=== PATIENT | female | born 2000 | race Caucasian/White ===

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

== ENCOUNTER 2024-03-09 11:46 | Emergency (ER) | payer BC, MEDICAID ==
[~2024-03-09] VITALS: Ht 165.1 cm; Wt 75.0 kg
[2024-03-09 12:57] VITALS: BP 112/74; PULSE 86; RESP 18; TEMP 98.5; O2SAT 100
[2024-03-09] MEDS: TETANUS-DIPTH-ACEL PERTUSSIS 0.5ML SYR Tdap IM ONE (13:40)
[2024-03-09] MEDS: IBUPROFEN 600 MG TAB PO ONE (13:40)
[2024-03-09] MEDS ORDERED: IBUP1TAB5 PO (13:55)
== END 2024-03-09 14:09 | disposition home or self-care (01) ==
LOC: ER 11:46
DX: S91.201A Unspecified open wound of right great toe with damage to nail, initial encounter (principal); S90.211A Contusion of right great toe with damage to nail, initial encounter; Z88.1 Allergy status to other antibiotic agents; Z79.899 Other long term (current) drug therapy; W55.12XA Struck by horse, initial encounter; Y93.89 Activity, other specified; Y92.89 Other specified places as the place of occurrence of the external cause; Y99.8 Other external cause status
CPT/HCPCS: 73630; 90471; 90715